=== PATIENT | female | born 1940 | race Caucasian/White ===

== ENCOUNTER 2016-05-15 16:18 | Outpatient (CLI) | payer MEDICARE, OTHER | END 2016-05-15 16:19 | disposition home or self-care (01) | DX: M19.012 Primary osteoarthritis, left shoulder (principal); Z85.118 Personal history of other malignant neoplasm of bronchus and lung; Z90.2 Acquired absence of lung [part of] ==

== ENCOUNTER 2016-10-08 08:39 | Emergency (ER) | payer MEDICARE, OTHER ==
[2016-10-08] MEDS ORDERED: SODIUM CHLORIDE 0.9% 1,000 ML IV ONE (09:02)
[2016-10-08] MEDS ORDERED: DEXAMETHASONE 10 MG/ML VIAL IVP STA (09:02)
[2016-10-08] MEDS ORDERED: IPRATROPIUM/ALBUTEROL 3 ML NEB INH STA (09:02)
--- NOTE | 2016-10-08 09:07 | ED Physician Documentation ---
PD HPI DYSPNEA - Stated complaint Stated Complaint: SOA - Chief complaint Chief Complaint: General - History obtained from History obtained from: Patient, Family - History of Present Illness Timing - onset: How many weeks ago (2) Timing - onset during: Rest Timing - duration: Weeks (2) Timing - details: Gradual onset, Still present, Waxing and waning Inciting event(s): URI Improved by: Inhaler/neb, Other (the z-elsa seemed to help) Worsened by: Exertion, Laying flat, Coughing Associated symptoms: Cough, Wheezing. No: Fever, Bilateral edema, Unilateral edema Similar symptoms before: Diagnosis (COPD) Recently seen: Clinic (Seen in the clinic 2 weeks ago.) - Additional information Additional information: 75 y/o female s/p lobectomy for lung cancer (5yrs ago)S has a history of COPD and about 2 weeks ago she began to have a cough and went in to see her doctor and was put on a z-elsa with thick yellow phlem that seemed to improve with the treatment. The cough has persisted and the coughing paroxysms are bad. She has a sore throat from the coughing and she vomited yesterday after using her inhaler and causing a coughing paroxysm. She is getting relief with the inhaler but she is short of breath and worse with exertion and laying flat. Review of Systems Constitutional: reports: Fatigue. denies: Fever, Chills Eyes: denies: Decreased vision Ears: denies: Ear pain Nose: reports: Congestion. denies: Rhinorrhea / runny nose Throat: reports: Sore throat Cardiac: denies: Chest pain / pressure, Palpitations, Pedal edema, Calf pain Respiratory: reports: Dyspnea, Cough, Wheezing GI: reports: Vomiting (yesterday with inhaler use and coughing paroxysm). denies: Abdominal Pain, Nausea : denies: Dysuria, Frequency Skin: denies: Rash Musculoskeletal: denies: Neck pain, Back pain, Extremity pain Neurologic: denies: Generalized weakness, Focal weakness, Numbness PD PAST MEDICAL HISTORY - Past Medical History Cardiovascular: Atrial fibrillation, Arrhythmia Respiratory: Other Neuro: None Endocrine/Autoimmune: None GI: Ulcers : None HEENT: Chronic sinusitis Psych: Claustrophobia Musculoskeletal: Osteopenia Derm: Psoriasis, Rosacea - Past Surgical History Past Surgical History: Yes General: Colonoscopy, EGD Ortho: Carpal Tunnel surgery, Other /[employer]: Hysterectomy HEENT: Tonsil/Adenoidectomy - Present Medications Home Medications: Ambulatory Orders Medication Instructions Recorded Confirmed Aspirin [Aspir 81] 81 mg PO DAILY 06/22/13 10/08/16 Metoprolol Succinate 25 mg PO BID 06/22/13 10/08/16 Acetaminophen [Tylenol Extra 1,000 mg PO Q6HR PRN 10/11/15 10/08/16 Strength] Metronidazole [Metrocream] 45 gm TP DAILY 10/11/15 10/08/16 Albuterol Sulfate [Proair Hfa] 8.5 gm IH PRN PRN 10/12/15 10/08/16 Azithromycin [Zithromax] 250 mg PO DAILY #6 tablet 10/08/16 Benzonatate [Tessalon] 100 - 200 mg PO TID PRN #20 capsule 10/08/16 predniSONE [Deltasone] 10 mg PO DAILY #26 tablet 10/08/16 - Allergies Allergies/Adverse Reactions: Allergies Allergy/AdvReac Type Severity Reaction Status Date / Time amoxicillin trihydrate * AdvReac Intermediate Emesis Verified 10/08/16 08:48 [From Augmentin] potassium clavulanate * AdvReac Intermediate Emesis Verified 10/08/16 08:48 [From Augmentin] ibuprofen [From Motrin] AdvReac Emesis Verified 10/08/16 08:48 - Social History Does the pt smoke?: No Smoking Status: Never smoker Does the pt drink ETOH?: Yes Does the pt have substance abuse?: No - Immunizations Immunizations are current?: Yes - POLST Patient has POLST: Yes POLST Status: Full Code PD ED PE NORMAL - Vitals Vital signs reviewed: Yes (marked diastolic hypertension, tachypnea) - General General: Alert and oriented X 3, Well developed/nourished, Other (The patient has persed lip tachypnea at rest and is pleasant and does not appear anxious. ) - HEENT HEENT: Atraumatic, PERRL, EOMI, Ears normal, Moist mucous membranes, Pharynx benign, Dentition benign - Neck Neck: Supple, no meningeal sign, No bony TTP - Cardiac Cardiac: RRR, No murmur - Respiratory Respiratory: Other (tachypneic at rest with diminished breath sounds and high pitched focal wheeze in the left mid lung field. There is a well healed lobectomy scar on the left lower chest posteriorly ) - Abdomen Abdomen: Soft, Non tender - Back Back: No CVA TTP, No spinal TTP - Derm Derm: Normal color, Warm and dry, No rash - Extremities Extremities: No deformity, No edema - Neuro Neuro: Alert and oriented X 3, No motor deficit, No sensory deficit, Normal speech - Psych Psych: Normal mood, Normal affect Results - Vitals Vitals: Vital Signs - 24 hr 10/08/16 10/08/16 10/08/16 08:44 09:30 09:34 Temperature 36.3 C L Heart Rate 96 68 78 Respiratory 22 24 18 Rate Blood Pressure 155/130 H 145/63 H O2 Saturation 96 94 10/08/16 10/08/16 10:19 11:00 Temperature Heart Rate 59 L 64 Respiratory 18 20 Rate Blood Pressure 140/55 H O2 Saturation 96 Oxygen O2 Source Room air - EKG (time done) 0915 Rate: Rate (enter#) (71) Rhythm: NSR, Other ( unifocal pvc's) Ischemia: Other (flat T's laterally ) Compare to prior EKG: Changed from prior EKG (SPT 314 rate has decreased and PVC's have developed. ) Computer interpretation: Disagree with computer (The R wave progession is normal ) - Labs Labs: Microbiology 10/08/16 09:30 Respiratory Culture - Preliminary Sputum Laboratory Tests 10/08/16 10/08/16 10/08/16 09:05 09:05 09:05 WBC 6.7 RBC 4.63 Hgb 13.9 Hct 41.5 MCV 89.6 MCH 30.0 MCHC 33.5 RDW 14.1 Plt Count 252 MPV 8.7 Neut # 4.1 Lymph # 1.8 [place] # 0.5 Eos # 0.1 Baso # 0.2 H Absolute Nucleated RBC 0.00 Nucleated RBCs 0.0 Sodium 139 Potassium 4.1 Chloride 103 Carbon Dioxide 28 Anion Gap 8.0 BUN 21 H Creatinine 0.7 Estimated GFR (MDRD) 81 L Glucose 114 H Calcium 9.6 Total Bilirubin 1.3 H AST 19 ALT 19 Alkaline Phosphatase 40 L Troponin I < 0.04 B-Natriuretic Peptide Total Protein 7.0 Albumin 3.9 Globulin 3.1 Albumin/Globulin Ratio 1.3 Lipase 31 Urine Color Urine Clarity Urine pH Ur Specific [place] Urine Protein Urine Glucose (UA) Urine Ketones Urine Occult Blood Urine Nitrite Urine Bilirubin Urine Urobilinogen Ur Leukocyte Esterase Ur Microscopic Review Urine Culture Comments 10/08/16 10/08/16 09:05 09:21 WBC RBC Hgb Hct MCV MCH MCHC RDW Plt Count MPV Neut # Lymph # [place] # Eos # Baso # Absolute Nucleated RBC Nucleated RBCs Sodium Potassium Chloride Carbon Dioxide Anion Gap BUN Creatinine Estimated GFR (MDRD) Glucose Calcium Total Bilirubin AST ALT Alkaline Phosphatase Troponin I B-Natriuretic Peptide 354 H Total Protein Albumin Globulin Albumin/Globulin Ratio Lipase Urine Color YELLOW Urine Clarity CLEAR Urine pH 6.0 Ur Specific [place] 1.010 Urine Protein NEGATIVE Urine Glucose (UA) NEGATIVE Urine Ketones NEGATIVE Urine Occult Blood NEGATIVE Urine Nitrite NEGATIVE Urine Bilirubin NEGATIVE Urine Urobilinogen 0.2 (NORMAL) Ur Leukocyte Esterase NEGATIVE Ur Microscopic Review NOT INDICATED Urine Culture Comments NOT INDICATED Procedures - IVC sono (time) 0900 Bedside IVC sono: IVC measures (cm) (1.02), IVC collapsed c insp (cm) (complete) , Dehydration PD MEDICAL DECISION MAKING - ED course Complexity details: reviewed old records, reviewed results, re-evaluated patient , considered differential, d/w patient, d/w family ED course: 75 y/o female s/p lobectomy for lung cancer with acute shortness of breath has diminished air movement and on interrogation of the IVC she is not in failure and in fact needs some fluid. She presents with rapid shallow breaths without hypoxia. She is initially treated in the ED with decadron, duoneb and saline. Her blood pressure is markedly elevated on initial presentation to the ED. She improves dramatically with treatment and CXR is without obvious infiltrate. She does produce a colored sputum sample and this is sent for culture. She is placed back on another course of zithromax as she felt this helped a lot and she is given a course of prednisone and she is reluctant to take it. I have discussed the use of the prednisone with her and I have asked her not to start this for 2 days and to start it the 3rd day if she has persistent dyspnea. Departure - Departure Disposition: 01 Home, Self Care Clinical Impression: COPD exacerbation, Bronchitis Condition: Stable Instructions: ED COPD Flare, ED Bronchitis Asthmatic Follow-Up: Melinda Lim MD [Primary Care Provider] - Prescriptions: predniSONE [Deltasone] 10 mg PO DAILY #26 tablet Benzonatate [Tessalon] 100 - 200 mg PO TID PRN #20 capsule PRN Reason: Cough Azithromycin [Zithromax] 250 mg PO DAILY #6 tablet
[2016-10-08] MEDS ORDERED: DEXAMETHASONE 10 MG/ML VIAL ONE (09:17)
[2016-10-08 09:22] LABS: BASOPHILS # (AUTO) 0.2 10^3/uL (0.0-0.1); BASOPHILS % (AUTO) 2.7 %; EOSINOPHILS # (AUTO) 0.1 10^3/uL (0.0-0.7); EOSINOPHILS % (AUTO) 1.5 %; HCT - HEMATOCRIT 41.5 % (37.0-47.0); HGB - HEMOGLOBIN 13.9 g/dL (12.0-16.0); LYMPHOCYTES # (AUTO) 1.8 10^3/uL (1.5-3.5); LYMPHOCYTES % (AUTO) 26.9 %; MEAN CORPUSCULAR HGB CONC 33.5 g/dL (32.0-36.0); MEAN CORPUSCULAR VOLUME 89.6 fL (81.0-99.0); MEAN PLATELET VOLUME 8.7 fL (7.9-10.8); MONOCYTES # (AUTO) 0.5 10^3/uL (0.0-1.0); MONOCYTES % (AUTO) 7.3 %; NEUTROPHILS # (AUTO) 4.1 10^3/uL (1.5-6.6); NEUTROPHILS % (AUTO) 61.6 %; RED BLOOD COUNT 4.63 10^6/uL (4.20-5.40); RED CELL DISTRIBUTION WIDTH 14.1 % (12.0-15.0); UNCORRECTED WHITE BLOOD COUNT 6.7 x10^3/uL; WHITE BLOOD COUNT 6.7 x10^3/uL (4.8-10.8)
[2016-10-08] MEDS ORDERED: IPRATROPIUM/ALBUTEROL 3 ML NEB INH ONE (09:22)
[2016-10-08 09:32] LABS: ALBUMIN/GLOBULIN RATIO 1.3 (1.0-2.2); BILIRUBIN,TOTAL 1.3 mg/dL (0.2-1.0); CALCIUM 9.6 mg/dL (8.5-10.3); CREATININE 0.7 mg/dL (0.4-1.0); POTASSIUM 4.1 mmol/L (3.5-5.0)
[2016-10-08 09:33] LABS: BILIRUBIN,URINE NEGATIVE (NEGATIVE)
[2016-10-08 09:35] LABS: UA CHARGE (STRIP ONLY) YES; UR CULTURE IF IND NOT INDICATED
[2016-10-08] MEDS ORDERED: ALBUTEROL NEB 2.5 MG/3 ML INH STA (10:57)
--- NOTE | 2016-10-08 10:57 | XRAY Preliminary Report ---
Exam: XR Chest 2 View PA/LAT IMPRESSION: 1. Interval moderate decrease in the elevated left hemidiaphragm and otherwise minimal interval [place] e of the left pneumonectomy. 2. Negative for acute cardiopulmonary process or new right pulmonary infiltrate. [facility] SITE ID: [id number]
--- NOTE | 2016-10-08 11:00 | XRAY Report ---
EXAM: CHEST RADIOGRAPHY EXAM DATE: 10/08/2016 10:38 AM. CLINICAL HISTORY: Cough, soa for 1 month, status post left pneumonectomy. COMPARISON: 05/15/2016. TECHNIQUE: 2 views. FINDINGS: Lungs/Pleura: The postoperative changes of left pneumonectomy again visualized, minimal interval bruner ges. No new focal opacities in the right lung evident. No right pleural effusion. No pneumothorax. Mediastinum: Heart and mediastinal contours are stable in appearance. Other: The prior elevated left hemidiaphragm is moderately reduced. IMPRESSION: 1. Interval moderate decrease in the elevated left hemidiaphragm and otherwise minimal interval [place] e of the left pneumonectomy. 2. Negative for acute cardiopulmonary process or new right pulmonary infiltrate. [facility] Referring Provider Line: [phone] SITE ID: [id number]
[2016-10-08] MEDS ORDERED: ALBUTEROL NEB 2.5 MG/3 ML INH ONE (11:06)
[2016-10-08 11:39] VITALS: BP 133/61
== END 2016-10-08 11:43 | disposition home or self-care (01) ==
LOC: ED 08:39
DX: J44.1 Chronic obstructive pulmonary disease with (acute) exacerbation (principal); R03.0 Elevated blood-pressure reading, without diagnosis of hypertension; E86.0 Dehydration; I49.3 Ventricular premature depolarization; Z85.118 Personal history of other malignant neoplasm of bronchus and lung; Z90.2 Acquired absence of lung [part of]; Z79.82 Long term (current) use of aspirin
CPT/HCPCS: 36415; 71020; 80053; 81003; 83690; 83880; 84484; 85025; 87070; 87205; 93005; 94640; 94664; 96361; 96374; 99284; J7613; J7620; 81001; 87086

== ENCOUNTER 2016-10-10 09:23 | Outpatient (CLI) | payer MEDICARE, OTHER ==
[2016-10-10] MEDS ORDERED: ALBUTEROL NEB 2.5 MG/3 ML INH ONE (09:30)
== END 2016-10-10 09:24 | disposition home or self-care (01) ==
LOC: RT 09:23
PROVIDERS: ATTEND Internal Medicine
DX: R05 Cough (principal); R06.00 Dyspnea, unspecified
CPT/HCPCS: 94060; J7613

== ENCOUNTER 2017-03-04 09:00 | Outpatient (CLI) | payer MEDICARE, OTHER ==
[2017-03-04 09:35] LABS: CALCIUM 9.7 mg/dL (8.5-10.3); CREATININE 1.2 mg/dL (0.4-1.0); POTASSIUM 4.7 mmol/L (3.5-5.0)
== END 2017-03-04 09:01 | disposition home or self-care (01) ==
LOC: LAB 09:00
PROVIDERS: ATTEND Internal Medicine Pulmonary Disease
DX: R06.00 Dyspnea, unspecified (principal)
CPT/HCPCS: 36415; 80048

== ENCOUNTER 2017-12-16 08:41 | Outpatient (CLI) | payer MEDICARE, OTHER ==
[2017-12-16 09:20] LABS: BASOPHILS # (AUTO) 0.1 10^3/uL (0.0-0.1); BASOPHILS % (AUTO) 1.1 %; EOSINOPHILS # (AUTO) 0.3 10^3/uL (0.0-0.7); EOSINOPHILS % (AUTO) 4.2 %; HGB - HEMOGLOBIN 14.7 g/dL (12.0-16.0); LYMPHOCYTES # (AUTO) 2.1 10^3/uL (1.5-3.5); LYMPHOCYTES % (AUTO) 32.4 %; MEAN CORPUSCULAR HEMOGLOBIN 30.2 pg (27.0-31.0); MEAN CORPUSCULAR HGB CONC 33.7 g/dL (32.0-36.0); MEAN CORPUSCULAR VOLUME 89.5 fL (81.0-99.0); MEAN PLATELET VOLUME 9.2 fL (7.9-10.8); MONOCYTES # (AUTO) 0.5 10^3/uL (0.0-1.0); MONOCYTES % (AUTO) 7.3 %; NEUTROPHILS # (AUTO) 3.5 10^3/uL (1.5-6.6); PLT - PLATELET COUNT 185 10^3/uL (130-450); RED BLOOD COUNT 4.87 10^6/uL (4.20-5.40); RED CELL DISTRIBUTION WIDTH 13.4 % (12.0-15.0); WHITE BLOOD COUNT 6.4 x10^3/uL (4.8-10.8)
[2017-12-16 09:23] LABS: BILIRUBIN,URINE NEGATIVE (NEGATIVE); GLUCOSE, URINE (UA) NEGATIVE (NEGATIVE); KETONES,URINE (UA) NEGATIVE (NEGATIVE); LEUKOCYTE ESTERASE, URINE NEGATIVE (NEGATIVE); NITRITE,URINE NEGATIVE (NEGATIVE); OCCULT BLOOD,URINE NEGATIVE (NEGATIVE); PROTEIN,URINE NEGATIVE (NEGATIVE); UROBILINOGEN,URINE 0.2 (NORMAL) E.U./dL (NORMAL)
[2017-12-16 09:34] LABS: HB2 TOTAL 15.7 g/dL; HEMOGLOBIN A1C 0.62 g/dL; HEMOGLOBIN A1C % 5.8 % (4.6-6.2)
[2017-12-16 09:35] LABS: ALBUMIN 3.9 g/dL (3.2-5.5); ALBUMIN/GLOBULIN RATIO 1.3 (1.0-2.2); ALKALINE PHOSPHATASE 39 IU/L (42-121); ALT ALANINE AMINOTRANSFERASE 13 IU/L (10-60); AST ASPARTATE AMINOTRANSFERASE 18 IU/L (10-42); BILIRUBIN,TOTAL 1.1 mg/dL (0.2-1.0); BUN - BLOOD UREA NITROGEN 22 mg/dL (6-20); CALCIUM 9.2 mg/dL (8.5-10.3); CARBON DIOXIDE - CO2 31 mmol/L (21-32); CHLORIDE 101 mmol/L (101-111); CHOL/HDL RATIO 3.7 (<4.4); CHOLESTEROL 244 mg/dL; CLARITY,URINE CLEAR (CLEAR); CREATININE 0.8 mg/dL (0.4-1.0); GFR - MDRD 69 (>89); GLUCOSE 117 mg/dL (70-100); HDL CHOLESTEROL 66 mg/dL; LDL CHOLESTEROL,CALCULATED 138 mg/dL; LDL/HDL RATIO 2.1 (<4.4); SODIUM 139 mmol/L (135-145); VLDL CHOLESTEROL 40 mg/dL
== END 2017-12-16 08:42 | disposition home or self-care (01) ==
LOC: LAB 08:41
PROVIDERS: ATTEND Internal Medicine
DX: I10 Essential (primary) hypertension (principal); Z79.899 Other long term (current) drug therapy; C34.90 Malignant neoplasm of unspecified part of unspecified bronchus or lung; J44.9 Chronic obstructive pulmonary disease, unspecified; K21.9 Gastro-esophageal reflux disease without esophagitis; R14.3 Flatulence; N39.3 Stress incontinence (female) (male); R73.01 Impaired fasting glucose; E78.5 Hyperlipidemia, unspecified; Z13.6 Encounter for screening for cardiovascular disorders
CPT/HCPCS: 36415; 80053; 80061; 81001; 81003; 83036; 83721; 84443; 85025; 87086

== ENCOUNTER 2018-01-03 14:22 | Outpatient (CLI) | payer MEDICARE, OTHER ==
[2018-01-03] MEDS ORDERED: IOPAMIDOL-300 100 ML VIAL ONE (14:29)
[2018-01-03] MEDS ORDERED: IOPAMIDOL-300 50 ML VIAL ONE (14:32)
[2018-01-03] MEDS ORDERED: IOPAMIDOL-300 100 ML VIAL IVP ONE (15:54)
[2018-01-03] MEDS ORDERED: IOPAMIDOL-300 50 ML VIAL PO ONE (15:54)
--- NOTE | 2018-01-03 17:51 | CT Report ---
Reason: LLQ PAIN Procedure Date: 01/03/2018 Accession Number: [id number] / [id number] Procedure: CT - Abdomen/Pelvis W/ CPT Code: FULL RESULT: EXAM: CT ABDOMEN AND PELVIS EXAM DATE: 01/03/2018 03:52 PM. CLINICAL HISTORY: LLQ PAIN. COMPARISONS: None. TECHNIQUE: Routine helical CT imaging was performed through the abdomen and pelvis. IV contrast: 100 cc Isovue-300. Enteric contrast: Yes. Reconstructions: Coronal and sagittal. In accordance with CT protocol optimization, one or more of the following dose reduction techniques were utilized for this exam: automated exposure control, adjustment of mA and/or KV based on patient size, or use of iterative reconstructive technique. FINDINGS: ABDOMEN: Lung Bases: Incompletely included lower lungs demonstrate volume loss in the left hemithorax and a small pleural effusion. There is mediastinal shift to the left. Heart size is within normal limits. No basilar effusions. Liver: Unremarkable aside from a couple cysts measuring 2.4 cm and 2.3 cm. Spleen: Unremarkable. Pancreas: Unremarkable. Gallbladder/Bile Ducts: Gallbladder is unremarkable. Biliary tree is normal caliber. Adrenal Glands: Unremarkable. Kidneys: No mass, calculi, or hydronephrosis. Peritoneum/Mesentery/Bowel: No free fluid, free air, or collection. No intestinal obstruction or inflammation. Extensive colonic diverticulosis is present. The appendix is within normal limits. Lymph nodes: No mesenteric, periportal, or retroperitoneal lymphadenopathy. Vasculature: Abdominal aorta is nonaneurysmal. Severe calcified out this chronic disease of the patent common iliac arteries. Portal vein is patent. Hepatic veins are patent. PELVIS: The bladder is unremarkable for the degree of distention. Uterus is absent. No pelvic lymphadenopathy. Bones: No suspicious osseous lesions. IMPRESSION: No acute abnormalities. Extensive sigmoid diverticulosis without evidence for diverticulitis. [facility]
== END 2018-01-03 14:23 | disposition home or self-care (01) ==
LOC: DI 14:22
PROVIDERS: ATTEND Internal Medicine
DX: R10.32 Left lower quadrant pain (principal); K57.30 Diverticulosis of large intestine without perforation or abscess without bleeding
CPT/HCPCS: 74177; Q9967

== ENCOUNTER 2020-03-24 10:58 | Outpatient (CLI) | payer MEDICARE, OTHER | END 2020-03-24 10:59 | disposition critical access hospital (66) | LOC: EMS 10:58 | PROVIDERS: ATTEND Surgery | DX: R47.81 Slurred speech (principal); R51.9 Headache, unspecified; R26.81 Unsteadiness on feet ==

== ENCOUNTER 2020-03-24 11:03 | Emergency (ER) | payer MEDICARE, OTHER ==
--- NOTE | 2020-03-24 11:40 | XRAY Report ---
PROCEDURE: Chest 1 View X-Ray INDICATIONS: speech difficulty, weakness TECHNIQUE: One view of the chest was acquired. COMPARISON: 10/08/2016 FINDINGS: Surgical changes and devices: Surgical clips are noted in left hilar region. Lungs and pleura: Complete opacification of left hemithorax is again seen consistent with prior left pneumonectomy. Right lung is clear. No pleural effusion or pneumothorax. Mild pulmonary vascular jose estion is seen. Mediastinum: Mediastinal shift to the left is again seen unchanged from prior study.. Heart size is normal. Bones and chest wall: No suspicious bony lesions. Overlying soft tissues appear unremarkable. IMPRESSION: Suggestion of prior left pneumonectomy. Mild congestion. No right-sided infiltrate, pleural effusion or pneumothorax. Reviewed by: Morales Buckley MD on 03/24/2020 10:38 AM [facility] Approved by: Morales Buckley MD on 03/24/2020 10:38 AM [facility] Station ID: [id number]
[2020-03-24 11:42] LABS: BASOPHILS # (AUTO) 0.1 10^3/uL (0.0-0.1); BASOPHILS % (AUTO) 1.1 %; EOSINOPHILS # (AUTO) 0.3 10^3/uL (0.0-0.7); EOSINOPHILS % (AUTO) 3.8 %; HGB - HEMOGLOBIN 14.1 g/dL (12.0-16.0); LYMPHOCYTES # (AUTO) 2.4 10^3/uL (1.5-3.5); LYMPHOCYTES % (AUTO) 32.5 %; MEAN CORPUSCULAR HEMOGLOBIN 28.9 pg (27.0-31.0); MEAN CORPUSCULAR HGB CONC 31.6 g/dL (32.0-36.0); MEAN CORPUSCULAR VOLUME 91.4 fL (81.0-99.0); MEAN PLATELET VOLUME 10.9 fL (7.9-10.8); MONOCYTES # (AUTO) 0.5 10^3/uL (0.0-1.0); MONOCYTES % (AUTO) 7.4 %; NEUTROPHILS % (AUTO) 54.9 %; PLT - PLATELET COUNT 232 10^3/uL (130-450); RED BLOOD COUNT 4.88 10^6/uL (4.20-5.40); WHITE BLOOD COUNT 7.3 x10^3/uL (4.8-10.8)
[2020-03-24 11:54] LABS: ALBUMIN 4.1 g/dL (3.2-5.5); ALBUMIN/GLOBULIN RATIO 1.3 (1.0-2.2); BILIRUBIN,TOTAL 1.2 mg/dL (0.2-1.0); CALCIUM 9.6 mg/dL (8.5-10.3); CREATININE 0.7 mg/dL (0.4-1.0); TOTAL PROTEIN 7.3 g/dL (6.7-8.2)
[2020-03-24] MEDS ORDERED: IOVERSOL 320 100 ML VIAL IVP ONE ×2 (12:55→14:28)
--- NOTE | 2020-03-24 13:48 | CT Report ---
PROCEDURE: ANGIO HEAD W/WO INDICATIONS: Stroke symptoms; facial droop and slurred speech CONTRAST: IV CONTRAST: Optiray 320 ml: 80 PO CONTRAST: *NO PO CONTRAST TECHNIQUE: Precontrast 4.5 mm thick angled axial sections acquired from the foramen magnum to the vertex. Afte r the administration of intravenous contrast, 1 mm thick sections acquired through the [place] is. Postcontrast 4.5 mm thick sections then re-acquired from the foramen magnum to the vertex. 3-di mensional lcxckjt-xehoaglyp-mfopcwrgyr (MIP) and/or volume rendering reformats were acquired of the c entral intracranial vasculature. For radiation dose reduction, the following was used: automated ex posure control, adjustment of mA and/or kV according to patient size. COMPARISON: Done. FINDINGS: Image quality: Excellent. Anterior circulation: There is complete occlusion of the left distal carotid terminus extending into the left M1 and A1 segments. The left ophthalmic artery origin appears patent. The A2 and M2 segments are perfused, presumably via collaterals across the [place] and lenticulostriate vessels. R ight-sided cerebral vasculature appears patent. Posterior circulation: Visualized portions of the vertebral arteries demonstrate normal caliber, and join to form a normal appearing basilar artery. Flow within the posterior cerebral arteries is norm al and symmetric. No aneurysms are seen. CSF spaces: Ventricles are normal in size and shape. Basal cisterns are patent. No extra-axial flu id collections. Brain: No acute intracranial hemorrhage. Skull and face: Calvarium and facial bones appear intact, without suspicious lesions. Sinuses: Visualized sinuses and mastoids are clear. IMPRESSION: No evidence of acute intracranial hemorrhage. 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 Findings were discussed with Dr. Gracie Ivy. Reviewed by: Alvin Beckett MD on 03/24/2020 1:47 PM PST Approved by: Alvin Beckett MD on 03/24/2020 1:47 PM PST Station ID: [id number]
--- NOTE | 2020-03-24 13:53 | CT Report ---
PROCEDURE: ANGIO NECK W INDICATIONS: stroke CONTRAST: IV CONTRAST: Optiray 320 ml: 80 PO CONTRAST: *NO PO CONTRAST TECHNIQUE: After the administration of intravenous contrast, 1.5 mm axial sections acquired from the aortic arch to the [place]. Coronal 3-D maximum intensity projection (MIP) and/or volume rendering ref ormats were then performed. For radiation dose reduction, the following was used: automated exposur e control, adjustment of mA and/or kV according to patient size. COMPARISON: None. FINDINGS: Image quality: Excellent. Carotid system: The left common carotid artery and brachiocephalic artery share a common origin from the aortic arch. There are atherosclerotic calcifications in the aortic arch extending into the origi ns of the arch branch vessels without hemodynamic significant stenosis. Bilateral common carotid shakila robert are widely patent. There is atherosclerotic calcification and soft plaque in both carotid bifurc ations without hematemesis significant stenosis, extending into the origins of the internal carotid a rteries. No flow-limiting stenosis of the cervical internal carotid arteries. Posterior circulation: Both vertebral arteries are widely patent and appear codominant.. Soft tissues: There are asymmetrically enlarged lymph nodes in the left neck base measuring up to 1.4 cm in short axis diameter (series 2 image 81 for example). Bones: No suspicious bony lesions. Visualized cervical spine appears normally aligned. IMPRESSION: Mild atherosclerotic disease of the carotid bifurcations without a mechanically significant stenosis. Asymmetrically enlarged lymph nodes in the left neck base. Findings are worrisome for metastatic dise ase given the presumed history of prior pneumonectomy. Estimates of stenoses included in the report of the imaging study was calculated using the NASCET met hod Reviewed by: Alvin Beckett MD on 03/24/2020 1:52 PM PST Approved by: Alvin Beckett MD on 03/24/2020 1:52 PM PST Station ID: [id number]
[2020-03-24] MEDS ORDERED: ALBUTEROL NEB 2.5 MG/3 ML INH STA (14:13)
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
[2020-03-24] MEDS ORDERED: ASPIRIN CHEW 81 MG TABLET PO STA (15:31)
[2020-03-24 15:48] LABS: C. PNEUMONIAE- RESP PCR PANEL NOT DETECTED
[2020-03-24 18:36] VITALS: BP 140/76
== END 2020-03-24 18:35 | disposition short-term general hospital (02) ==
LOC: EDUNIT# → ED 11:03
DX: G45.9 Transient cerebral ischemic attack, unspecified (principal); Z90.2 Acquired absence of lung [part of]; I48.91 Unspecified atrial fibrillation; Z87.891 Personal history of nicotine dependence; Z85.118 Personal history of other malignant neoplasm of bronchus and lung; Z20.828 Contact with and (suspected) exposure to other viral communicable diseases
CPT/HCPCS: 36415; 70496; 70498; 71045; 80053; 83690; 85025; 87631; 93005; 94640; 99285; A9270; Q9967; 0202U

== ENCOUNTER 2020-03-24 18:21 | Outpatient (CLI) | payer MEDICARE, OTHER | END 2020-03-24 18:22 | disposition short-term general hospital (02) | LOC: EMS 18:21 | PROVIDERS: ATTEND Surgery | DX: I65.29 Occlusion and stenosis of unspecified carotid artery (principal); R47.81 Slurred speech; R51.9 Headache, unspecified; R26.81 Unsteadiness on feet | CPT/HCPCS: A0425; A0428; A0429 ==

== ENCOUNTER 2020-12-09 14:55 | Outpatient (CLI) | payer MEDICARE, OTHER ==
--- NOTE | 2020-12-09 16:12 | XRAY Report ---
PROCEDURE: Chest 2 View X-Ray INDICATIONS: COUGH TECHNIQUE: 2 view(s) of the chest. COMPARISON: 03/24/2020 FINDINGS: Surgical changes and devices: Surgical change of left pneumonectomy with clips projecting in the mid left hemithorax.. Lungs and pleura: There is appropriate opacification and volume loss in the left hemithorax including elevation of the diaphragm. The right lung is normally aerated and appears clear. Mediastinum: Leftward shift of the mediastinum. Calcified aortic caliber and contour appears normal. Heart size is obscured. Bones and chest wall: Mild S-shaped thoracolumbar scoliosis with mild endplate degenerative changes. IMPRESSION: 1. No acute process. 2. Stable findings of prior left pneumonectomy Reviewed by: Marilee Flor MD on 12/09/2020 4:11 PM PDT Approved by: Marilee Flor MD on 12/09/2020 4:11 PM PDT Station ID: [id number]
== END 2020-12-09 14:56 | disposition home or self-care (01) ==
LOC: DI 14:55
PROVIDERS: ATTEND Internal Medicine
DX: J44.9 Chronic obstructive pulmonary disease, unspecified (principal); R05 Cough; R06.09 Other forms of dyspnea; Z90.2 Acquired absence of lung [part of]

== ENCOUNTER 2021-07-06 12:13 | Outpatient (CLI) | payer MEDICARE, OTHER ==
[2021-07-06 12:30] LABS: BASOPHILS # (AUTO) 0.1 10^3/uL (0.0-0.1); BASOPHILS % (AUTO) 0.8 %; EOSINOPHILS # (AUTO) 0.2 10^3/uL (0.0-0.7); EOSINOPHILS % (AUTO) 2.7 %; LYMPHOCYTES # (AUTO) 2.7 10^3/uL (1.5-3.5); LYMPHOCYTES % (AUTO) 34.4 %; MEAN CORPUSCULAR HEMOGLOBIN 28.5 pg (27.0-31.0); MEAN CORPUSCULAR HGB CONC 31.8 g/dL (32.0-36.0); MEAN CORPUSCULAR VOLUME 89.6 fL (81.0-99.0); MEAN PLATELET VOLUME 11.1 fL (7.9-10.8); MONOCYTES # (AUTO) 0.6 10^3/uL (0.0-1.0); MONOCYTES % (AUTO) 7.5 %; NEUTROPHILS # (AUTO) 4.2 10^3/uL (1.5-6.6); NEUTROPHILS % (AUTO) 54.3 %; PLT - PLATELET COUNT 213 10^3/uL (130-450); RED BLOOD COUNT 4.91 10^6/uL (4.20-5.40); RED CELL DISTRIBUTION WIDTH 13.3 % (12.0-15.0); WHITE BLOOD COUNT 7.7 x10^3/uL (4.8-10.8)
[2021-07-06 12:51] LABS: ALBUMIN 4.2 g/dL (3.2-5.5); ALBUMIN/GLOBULIN RATIO 1.4 (1.0-2.2); BILIRUBIN,TOTAL 1.2 mg/dL (0.2-1.0); CALCIUM 9.8 mg/dL (8.5-10.3); CREATININE 0.8 mg/dL (0.4-1.0); POTASSIUM 4.8 mmol/L (3.5-5.0); TOTAL PROTEIN 7.3 g/dL (6.7-8.2)
--- NOTE | 2021-07-06 12:52 | XRAY Report ---
PROCEDURE: Chest 2 View X-Ray INDICATIONS: DYSPNEA TECHNIQUE: 2 view(s) of the chest. COMPARISON: A 2720. FINDINGS: Surgical changes and devices: Surgical clips are noted in left hemithorax.. Lungs and pleura: There is prior left lung resection with complete opacification of left hemithorax a nd elevation of left hemidiaphragm. Mediastinal shift to the left is seen. Right lung is clear. No fo renato infiltrate, pleural effusion or pneumothorax. Mediastinum: Mediastinal contours are normal. Heart size is normal. Bones and chest wall: No suspicious bony abnormalities. Soft tissues appear unremarkable. IMPRESSION: No acute cardiopulmonary pathology. Prior left pneumonectomy. Reviewed by: Morales Buckley MD on 07/06/2021 12:50 PM PDT Approved by: Morales Buckley MD on 07/06/2021 12:50 PM PDT Station ID: [id number]
== END 2021-07-06 12:14 | disposition home or self-care (01) ==
LOC: DI 12:13
PROVIDERS: ATTEND Internal Medicine
DX: J44.9 Chronic obstructive pulmonary disease, unspecified (principal); I50.9 Heart failure, unspecified; Z79.899 Other long term (current) drug therapy
CPT/HCPCS: 36415; 80053; 83880; 85025

== ENCOUNTER 2021-08-16 08:00 | Outpatient (CLI) | payer MEDICARE, OTHER ==
[2021-08-16 16:23] LABS: BILIRUBIN,URINE NEGATIVE (NEGATIVE); GLUCOSE, URINE (UA) NEGATIVE (NEGATIVE); KETONES,URINE (UA) NEGATIVE (NEGATIVE); LEUKOCYTE ESTERASE, URINE LARGE (NEGATIVE); NITRITE,URINE NEGATIVE (NEGATIVE); OCCULT BLOOD,URINE LARGE (NEGATIVE); PROTEIN,URINE TRACE mg/dL (NEGATIVE); UROBILINOGEN,URINE 0.2 (NORMAL) E.U./dL (NORMAL)
[2021-08-16 16:26] LABS: CLARITY,URINE HAZY (CLEAR)
[2021-08-16 16:41] LABS: BACTERIA,URINE Moderate /HPF (None Seen); SQUAMOUS EPITHELIAL CELL,UR RARE Squamous (<= Few); WBC,URINE >25 /HPF (0-5)
== END 2021-08-19 18:09 | disposition home or self-care (01) ==
LOC: LAB.R 08:00
PROVIDERS: ATTEND Internal Medicine
DX: N39.0 Urinary tract infection, site not specified (principal)
CPT/HCPCS: 81001; 87086; 87181

== ENCOUNTER 2021-12-26 08:39 | Outpatient (CLI) | payer MEDICARE, OTHER ==
[2021-12-26 08:58] LABS: BASOPHILS % (AUTO) 0.5 %; EOSINOPHILS # (AUTO) 0.2 10^3/uL (0.0-0.7); EOSINOPHILS % (AUTO) 3.1 %; HCT - HEMATOCRIT 43.5 % (37.0-47.0); HGB - HEMOGLOBIN 13.9 g/dL (12.0-16.0); LYMPHOCYTES # (AUTO) 2.5 10^3/uL (1.5-3.5); LYMPHOCYTES % (AUTO) 33.6 %; MEAN CORPUSCULAR HEMOGLOBIN 28.5 pg (27.0-31.0); MEAN CORPUSCULAR VOLUME 89.3 fL (81.0-99.0); MEAN PLATELET VOLUME 10.9 fL (7.9-10.8); MONOCYTES # (AUTO) 0.5 10^3/uL (0.0-1.0); MONOCYTES % (AUTO) 6.5 %; NEUTROPHILS # (AUTO) 4.2 10^3/uL (1.5-6.6); PLT - PLATELET COUNT 198 10^3/uL (130-450); RED BLOOD COUNT 4.87 10^6/uL (4.20-5.40); RED CELL DISTRIBUTION WIDTH 13.6 % (12.0-15.0); WHITE BLOOD COUNT 7.5 x10^3/uL (4.8-10.8)
[2021-12-26 09:17] LABS: ALBUMIN 3.9 g/dL (3.2-5.5); ALBUMIN/GLOBULIN RATIO 1.4 (1.0-2.2); ALKALINE PHOSPHATASE 46 IU/L (42-121); ALT ALANINE AMINOTRANSFERASE 18 IU/L (10-60); AST ASPARTATE AMINOTRANSFERASE 18 IU/L (10-42); BILIRUBIN,TOTAL 1.2 mg/dL (0.2-1.0); BUN - BLOOD UREA NITROGEN 18 mg/dL (6-20); CALCIUM 9.5 mg/dL (8.5-10.3); CARBON DIOXIDE - CO2 32 mmol/L (21-32); CHLORIDE 102 mmol/L (101-111); CHOL/HDL RATIO 2.6 (<4.4); CHOLESTEROL 146 mg/dL; CREATININE 0.8 mg/dL (0.4-1.0); GFR - MDRD 69 (>89); GLUCOSE 105 mg/dL (70-100); HDL CHOLESTEROL 56 mg/dL; LDL CHOLESTEROL,CALCULATED 63 mg/dL; LDL/HDL RATIO 1.1 (<4.4); POTASSIUM 4.5 mmol/L (3.5-5.0); SODIUM 142 mmol/L (135-145); TOTAL PROTEIN 6.7 g/dL (6.7-8.2); TRIGLYCERIDES 135 mg/dL; VLDL CHOLESTEROL 27 mg/dL
[2021-12-26 13:09] LABS: ESTIMATED AVERAGE GLUCOSE 123 mg/dL (70-100); HEMOGLOBIN A1c% 5.9 % (4.27-6.07)
== END 2021-12-26 08:40 | disposition home or self-care (01) ==
LOC: LAB 08:39
PROVIDERS: ATTEND Internal Medicine
DX: Z00.00 Encounter for general adult medical examination without abnormal findings (principal); J44.9 Chronic obstructive pulmonary disease, unspecified; I11.0 Hypertensive heart disease with heart failure; I50.30 Unspecified diastolic (congestive) heart failure; K21.9 Gastro-esophageal reflux disease without esophagitis; R73.9 Hyperglycemia, unspecified; E78.5 Hyperlipidemia, unspecified; C34.90 Malignant neoplasm of unspecified part of unspecified bronchus or lung; Z79.899 Other long term (current) drug therapy; G45.9 Transient cerebral ischemic attack, unspecified; N39.3 Stress incontinence (female) (male)
CPT/HCPCS: 36415; 80053; 80061; 83036; 83721; 84443; 85025

== ENCOUNTER 2022-06-08 11:49 | Emergency (ER) | payer MEDICARE, OTHER ==
--- NOTE | 2022-06-08 11:58 | ED Physician Documentation ---
PD HPI Fall - Stated complaint Stated Complaint: FALL HEAD INJ - History obtained from History obtained from: Patient - History of Present Illness Mechanism of injury: Tripped (The [place] and arm with her and. They both fell forward and struck their faces. No loss of consciousness. Patient takes Plavix. Facial abrasion but no headache.) Fall distance: Standing position Timing - onset: Today Injury(ies) location: Face Quality of pain: Aching Associated symptoms: No: LOC, AMS, Neck pain, Weakness, Paresthesias Contributing factors: Anticoagulated Similar symptoms before: Has not had sx before Review of Systems Eyes: denies: Loss of vision, Decreased vision Musculoskeletal: denies: Neck pain Neurologic: denies: Focal weakness, Numbness, Near syncope, Syncope, Altered mental status, Headache, LOC PD PAST MEDICAL HISTORY - Past Medical History Cardiovascular: Atrial fibrillation, Arrhythmia Respiratory: Other Endocrine/Autoimmune: None GI: Ulcers : None HEENT: Chronic sinusitis Psych: Claustrophobia Musculoskeletal: Osteopenia Derm: Psoriasis, Rosacea - Past Surgical History Past Surgical History: Yes General: Colonoscopy, EGD Ortho: Carpal Tunnel surgery, Other /LICENSED PROFESSIONAL COUNSELOR: Hysterectomy HEENT: Tonsil/Adenoidectomy - Present Medications Home Medications: Ambulatory Orders Medication Instructions Recorded Confirmed Metoprolol Succinate 25 mg PO BID 06/22/13 03/24/20 Acetaminophen [Tylenol Extra 1,000 mg PO Q6HR PRN 10/11/15 03/24/20 Strength] Metronidazole [Metrocream] 45 gm TP DAILY 10/11/15 03/24/20 Albuterol Sulfate [Proair Hfa] 8.5 gm IH PRN PRN 10/12/15 03/24/20 Atorvastatin [Lipitor] 20 mg DAILY 03/24/20 03/24/20 Clopidogrel [Plavix] 75 mg DAILY 03/24/20 03/24/20 Furosemide [Lasix] 10 mg DAILY 03/24/20 03/24/20 Loratadine [Claritin] 10 mg DAILY 03/24/20 03/24/20 Losartan Potassium 25 mg DAILY 03/24/20 03/24/20 Umeclidinium Brm/Vilanterol Tr 1 puffs DAILY 03/24/20 03/24/20 [Anoro Ellipta 62.5-25 Mcg INH] - Allergies Allergies/Adverse Reactions: Allergies Allergy/AdvReac Type Severity Reaction Status Date / Time isoniazid Allergy Hives Verified 06/08/22 12:03 amoxicillin trihydrate * AdvReac Intermediate Emesis Verified 06/08/22 12:03 [From Augmentin] potassium clavulanate * AdvReac Intermediate Emesis Verified 06/08/22 12:03 [From Augmentin] hydrocodone [From Vicodin] AdvReac Emesis Verified 06/08/22 12:03 ibuprofen [From Motrin] AdvReac Emesis Verified 06/08/22 12:03 - Social History Does the pt smoke?: No Smoking Status: Never smoker Does the pt drink ETOH?: Yes Does the pt have substance abuse?: No - Immunizations Immunizations are current?: Yes - POLST Patient has POLST: Yes POLST Status: Full Code PD ED PE NORMAL - Vitals Vital signs reviewed: Yes - General General: Alert and oriented X 3, No acute distress, Well developed/nourished - HEENT HEENT: PERRL, EOMI, Other (The left maxillary area with a abrasion which is partial-thickness and about 1-1/2 cm in diameter. No foreign body. The wound is clean. No obvious depression or deformity of the zygoma underneath.) - Neck Neck: Supple, no meningeal sign, No bony TTP - Respiratory Respiratory: No respiratory distress, Clear bilaterally, Other (no chestwall tenderness) - Abdomen Abdomen: Normal bowel sounds, Non tender - Derm Derm: Normal color, Warm and dry - Extremities Extremities: Other (Mild tenderness in the anterior both knees but has good full range of motion and no effusion. She had been ambulatory.) Results - Vitals Vitals: Vital Signs - 24 hr 06/08/22 12:00 Temperature 36.8 C Heart Rate 78 Respiratory 20 Rate Blood Pressure 154/104 H O2 Saturation 100 Oxygen O2 Source Room air - Rads (name of study) head and face ct Radiology: Prelim report reviewed, See rad report PD Medical Decision Making - ED course Complexity details: reviewed results, re-evaluated patient, considered differential, d/w patient ED course: The patient felt well prior to falling. No lightheaded nor presyncopal symptoms. [place] She has an abrasion on the left cheek. No general headache no neurologic symptoms. She does take Plavix so is at higher risk for intracranial bleed. I feel it appropriate to obtain imaging of the head and face and we will send her for CT scans. CT did not show any bleeding nor fractures revieweed by me and per radiology report. Departure - Departure Disposition: 01 Home, Self Care Clinical Impression: Antiplatelet or antithrombotic long-term use Fall from slip, trip, or stumble Qualifiers: Encounter type: initial encounter Qualified Code(s): W01.0XXA - Fall on same level from slipping, tripping and stumbling without subsequent striking against object, initial encounter Facial abrasion Qualifiers: Encounter type: initial encounter Qualified Code(s): S00.81XA - Abrasion of other part of head, initial encounter Condition: Stable Record reviewed to determine appropriate education?: Yes Instructions: ED Abrasion Follow-Up: Melinda Lim MD [Primary Care Provider] - Comments: Your CT scans of the head and face are normal without showing any signs of bleeding, fractures, acute abnormality. For the facial abrasion, cleanse the area once or twice daily with soap and water and apply antibiotic ointment lightly to the area. Tylenol if needed for pains every 4-6 hours. Recheck if signs of infection. Discharge Date/Time: 06/08/22 14:14
[2022-06-08 12:03] VITALS: BP 154/104
[2022-06-08] MEDS ORDERED: BACITRACIN ZINC OINT 1 PACKET TOP STA (12:16)
[2022-06-08] MEDS ORDERED: ACETAMINOPHEN 325 MG TABLET PO STA (12:16)
--- NOTE | 2022-06-08 13:02 | CT Report ---
PROCEDURE: CT brain without contrast INDICATIONS: fall struck face; on Plavix TECHNIQUE: Noncontrast 4.5 mm thick angled axial sections acquired from the foramen magnum to the vertex. For r adiation dose reduction, the following was used: automated exposure control, adjustment of mA and/or kV according to patient size. COMPARISON: None. FINDINGS: Image quality: Excellent. CSF spaces: Basal cisterns are patent. No extra-axial fluid collections. Ventricles are normal in size and shape. Brain: No midline shift. No intracranial masses or hemorrhage. Rasmussen-white matter interface is norm al. Moderate atrophy and white matter chronic ischemic change. Old white matter infarcts noted in th e left gonzáles radiata white matter. Atherosclerotic vascular calcification noted in the cavernous seg ments of both internal carotid arteries Skull and face: Calvarium and visualized facial bones are intact, without suspicious lesions. Sinuses: Mucosal thickening noted in the left maxillary sinus IMPRESSION: Moderate atrophy and white matter chronic ischemic change without acute hemorrhage or mass effect. 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
--- NOTE | 2022-06-08 13:23 | CT Report ---
PROCEDURE: CT maxillofacial without contrast INDICATIONS: fall, struck face TECHNIQUE: Noncontrast 1.5 mm thick axial images acquired from the mandible through the frontal sinuses, with co eze and sagittal reformatting. For radiation dose reduction, the following was used: automated ex posure control, adjustment of mA and/or kV according to patient size. COMPARISON: None. FINDINGS: Image quality: Excellent. Bones and teeth: Orbital whitt are intact. Sinus whitt show no fracture or deformity. Nasal bones and septum are intact. Visualized portions of the mandible demonstrate no fractures or subluxation. Zygomatic arches are intact. Pterygoid plates are intact. Visualized portions of the skull base an d auditory canals are intact. Sinuses: Bilateral maxillary sinus mucosal thickening, left greater than right Soft tissues: No edema, masses, or fluid collections. No enlarged lymph nodes. No soft tissue lace rations or debris. Bilateral intraocular lens replacements noted. Vascular: Visualized vascular structures appear normal in the absence of contrast. Bony vascular fo ramina and canals are intact. IMPRESSION: No evidence of maxillofacial fracture Bilateral maxillary mucosal sinus disease Reviewed by: Abdon Dugan MD on 06/08/2022 12:22 PM [place] Approved by: Abdon Dugan MD on 06/08/2022 12:22 PM [facility] Station ID: [id number]
== END 2022-06-08 14:14 | disposition home or self-care (01) ==
LOC: ED 11:49
DX: S00.81XA Abrasion of other part of head, initial encounter (principal); W01.0XXA Fall on same level from slipping, tripping and stumbling without subsequent striking against object, initial encounter; Y93.01 Activity, walking, marching and hiking; Z79.02 Long term (current) use of antithrombotics/antiplatelets
CPT/HCPCS: 70450; 70486; 99283; 99284; A9270

== ENCOUNTER 2022-12-10 04:53 | Outpatient (CLI) | payer MEDICARE, OTHER | END 2022-12-10 04:54 | disposition short-term general hospital (02) | LOC: EMS 04:53 | DX: R07.9 Chest pain, unspecified (principal) | CPT/HCPCS: A0425; A0427 ==

== ENCOUNTER 2022-12-30 21:30 | Outpatient (CLI) | payer MEDICARE, OTHER | END 2022-12-30 21:31 | disposition critical access hospital (66) | LOC: EMS 21:30 | DX: R40.4 Transient alteration of awareness (principal); R29.810 Facial weakness | CPT/HCPCS: A0425; A0428 ==

== ENCOUNTER 2022-12-30 21:38 | Emergency (ER) | payer MEDICARE, OTHER ==
[2022-12-30] MEDS ORDERED: SODIUM CHLORIDE 0.9% 1,000 ML IV STA (22:08)
--- NOTE | 2022-12-30 22:14 | ED Physician Documentation ---
PD HPI FOCAL NEURO - Stated complaint Stated Complaint: AMS - Chief complaint Chief Complaint: Neuro - History obtained from History obtained from: Patient, Family () - History of Present Illness Timing - onset: Today Timing - duration: Minutes Timing - details: Abrupt onset, Now resolved Severity of deficit: Moderate Weakness: Face Associated symptoms: Other (could not talk) Contributing factors: positive: Other (recent NSTEMI) Baseline status: positive: A&OX3, ambulatory, indep Similar symptoms before: Diagnosis (TIA) Recently seen: Clinic (for follow up of recent NSTEMI) - Additional information Additional information: 82-year-old Cassia Wilkins was in her home today pouring water into a Kettle when she was noted by her to freeze up he noted that she had some droop to the right side of her face and she was not talking he states that this lasted probably as long as 2 to 3 minutes. The patient has recovered and feels back to her baseline. She has had similar incidences previously and has had prior work- up for TIA. 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 She was [facility] to [facility] and evaluated. They indicated to the patient there was nothing specific that could be done for this specific vessel.Patient has had a recent NSTEMI and currently has a monitor in place. She indicates that the boiler room operator has told her she has a vessel that is not amenable to stenting. Review of Systems Constitutional: denies: Fever Eyes: denies: Decreased vision Ears: denies: Ear pain Nose: denies: Rhinorrhea / runny nose, Congestion Throat: denies: Sore throat Cardiac: denies: Chest pain / pressure, Palpitations Respiratory: denies: Dyspnea, Cough GI: denies: Abdominal Pain, Nausea, Vomiting, Constipation, Diarrhea : denies: Dysuria, Frequency Skin: denies: Rash Musculoskeletal: denies: Neck pain, Back pain, Extremity pain PD PAST MEDICAL HISTORY - Past Medical History Cardiovascular: Atrial fibrillation, Arrhythmia Respiratory: Other Endocrine/Autoimmune: None GI: Ulcers : None HEENT: Chronic sinusitis Psych: Claustrophobia Musculoskeletal: Osteopenia Derm: Psoriasis, Rosacea - Past Surgical History Past Surgical History: Yes General: Colonoscopy, EGD Ortho: Carpal Tunnel surgery, Other /MANAGER STRATEGIC SOURCING: Hysterectomy HEENT: Tonsil/Adenoidectomy - Present Medications Home Medications: Ambulatory Orders Medication Instructions Recorded Confirmed Metoprolol Succinate 25 mg PO BID 06/22/13 12/30/22 Acetaminophen [Tylenol Extra 1,000 mg PO Q6HR PRN 10/11/15 12/30/22 Strength] Metronidazole [Metrocream] 45 gm TP DAILY 10/11/15 12/30/22 Albuterol Sulfate [Proair Hfa] 8.5 gm IH PRN PRN 10/12/15 12/30/22 Atorvastatin [Lipitor] 20 mg DAILY 03/24/20 12/30/22 Clopidogrel [Plavix] 75 mg DAILY 03/24/20 12/30/22 Furosemide [Lasix] 10 mg DAILY 03/24/20 12/30/22 Loratadine [Claritin] 10 mg DAILY 03/24/20 12/30/22 Losartan Potassium 25 mg DAILY 03/24/20 12/30/22 Umeclidinium Brm/Vilanterol Tr 1 puffs DAILY 03/24/20 12/30/22 [Anoro Ellipta 62.5-25 Mcg INH] - Allergies Allergies/Adverse Reactions: Allergies Allergy/AdvReac Type Severity Reaction Status Date / Time isoniazid Allergy Hives Verified 06/08/22 12:03 amoxicillin trihydrate * AdvReac Intermediate Emesis Verified 06/08/22 12:03 [From Augmentin] potassium clavulanate * AdvReac Intermediate Emesis Verified 06/08/22 12:03 [From Augmentin] hydrocodone [From Vicodin] AdvReac Emesis Verified 06/08/22 12:03 ibuprofen [From Motrin] AdvReac Emesis Verified 06/08/22 12:03 - Social History Does the pt smoke?: No Smoking Status: Never smoker Does the pt drink ETOH?: Yes Does the pt have substance abuse?: No - Immunizations Immunizations are current?: Yes - POLST Patient has POLST: Yes POLST Status: Full Code PD ED PE NORMAL - Vitals Vital signs reviewed: Yes (hypertensive diastolic ) - General General: Alert and oriented X 3, No acute distress, Well developed/nourished - HEENT HEENT: Atraumatic, PERRL, EOMI - Neck Neck: Supple, no meningeal sign, No bony TTP - Cardiac Cardiac: RRR, No murmur - Respiratory Respiratory: No respiratory distress, Clear bilaterally - Abdomen Abdomen: Normal bowel sounds, Soft, Non tender, Non distended, No organomegaly - Back Back: No CVA TTP, No spinal TTP - Derm Derm: Normal color, Warm and dry, No rash - Extremities Extremities: No deformity, No edema - Neuro Neuro: Alert and oriented X 3, hand crown pouncer 2-12 intact, No motor deficit, No sensory deficit, Normal speech Eye Opening: Spontaneous Motor: Obeys Commands Verbal: Oriented GCS Score: 15 - Psych Psych: Normal mood, Normal affect NIHSS - Time Time: 21:55 - Level of Consciousness Level of consciousness: (0) Alert, Keenly responsive LOC Questions: (0) Answers both Q's correct LOC Commands: (0) Performs both correctly - Gaze Best Gaze: (0) Normal - Visual Visual: (0) No loss - Facial Palsy Facial Palsy: (0) Normal, symmetrical movement - Motor Arms (both separate) Motor Arm (right): (0) No drift Motor Arm (left): (0) No drift - Motor Legs (both separate) Motor Leg (right): (0) No drift Motor Leg (left): (0) No drift - Limb Ataxia Limb Ataxia: (0) Absent - Sensory Sensory: (0) Normal - Best Language Best Language: (0) No aphasia - Dysarthria Dysarthria: (0) Normal - Extinction and Inattention (formally neg Extinction and inattention: (0) No abnormality - Total Score/Results Total Score/Result: 0 Results - Vitals Vitals: Vital Signs - 24 hr 12/30/22 12/30/22 12/30/22 21:45 21:55 22:25 Temperature 36.1 C L Heart Rate 74 72 75 Respiratory 24 22 22 Rate Blood Pressure 138/89 H 134/74 H 133/111 H O2 Saturation 96 95 94 12/30/22 12/31/22 23:30 00:30 Temperature Heart Rate 75 74 Respiratory 24 22 Rate Blood Pressure 133/111 H 131/91 H O2 Saturation 94 96 Oxygen O2 Source Room air - Labs Labs: Laboratory Tests 12/30/22 12/30/22 12/30/22 22:10 22:10 22:25 WBC 7.6 RBC 4.23 Hgb 11.8 L Hct 38.3 MCV 90.5 MCH 27.9 MCHC 30.8 L RDW 13.6 Plt Count 246 MPV 11.7 H Neut # (Auto) 4.1 Lymph # (Auto) 2.5 Ware # (Auto) 0.6 Eos # (Auto) 0.2 Baso # (Auto) 0.1 Absolute Nucleated RBC 0.00 Nucleated RBC % 0.0 Sodium 142 Potassium 3.6 Chloride 104 Carbon Dioxide 30 Anion Gap 8.0 BUN 18 Creatinine 0.8 Estimated GFR (MDRD) 68 L Glucose 112 H Calcium 9.1 Total Bilirubin 0.7 AST 17 ALT 16 Alkaline Phosphatase 45 Total Protein 6.3 L Albumin 3.7 Globulin 2.6 Albumin/Globulin Ratio 1.4 Lipase 44 Urine Color YELLOW Urine Clarity CLEAR Urine pH 6.5 Ur Specific [place] 1.015 Urine Protein NEGATIVE Urine Glucose (UA) NEGATIVE Urine Ketones NEGATIVE Urine Occult Blood NEGATIVE Urine Nitrite NEGATIVE Urine Bilirubin NEGATIVE Urine Urobilinogen 0.2 (NORMAL) Ur Leukocyte Esterase NEGATIVE Ur Microscopic Review NOT INDICATED Urine Culture Comments NOT INDICATED Procedures - IVC sono (time) 1000 Bedside IVC sono: IVC measures (cm) (0.81), IVC collapsed c insp (cm) (complete), Dehydration (est 2 liter + deficit) PD Medical Decision Making - ED course Complexity details: reviewed old records, reviewed results, re-evaluated patient, considered differential, d/w patient, d/w family Reviewed Lab Results: We reviewed a complete blood count showing a normal hemoglobin hematocrit and platelets as well as a normal white blood cell count. Chemistries were with normal electrolytes normal kidney and liver function. Urinalysis unremarkable. these laboratory tests do not contribute to a specific diagnosis. They do support the diagnosis of TIA by exclusion. Procedural Risk Factors Specific to Patient: This patient currently has a monitor in place that is a patch in the center portion of her chest. This appears to be interfering with our ability to monitor the patient. We were not able to obtain an electrocardiogram. 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 She is administered 2 L of saline here in the emergency department. She leaves the department symptom-free and with a specific recommendation to maintain hydration at all times. Her indicates that she drinks water poorly and he will up his surveillance of her use of fluids. I did not find a reason to admit the patient to the hospital as she has had prior work-up with salient findings supporting our findings today. The patient has had a recent NSTEMI and she has follow-up with cardiology. They are still concerned about the possibility of atrial fibrillation. I believe this patient's TIA is not related to clot or atrial fibrillation but to her known anatomic deficiency combined with her level of volume depletion. Departure - Departure Disposition: 01 Home, Self Care Clinical Impression: TIA (transient ischemic attack), Dehydration Condition: Stable Instructions: ED Dehydration, ED Transient Ischemic Attack Follow-Up: Melinda Lim MD [Primary Care Provider] - Comments: Cassia, today it looks like you have had another transient ischemic attack. You have been evaluated for this previously and there are known abnormalities to the circulation in your brain. Today we found that you were significantly dehydrated and this likely played a role in your TIA. It has previously been determined that there is not a specific intervention that will reverse or resolve the circulation problems in your brain. For this reason it is imperative that you stay hydrated. The recommendation for an adult is to drink 2 quarts of water per day. This can come in any form of hydration. The flip side of this is if you are drinking tea you can drink too much tea and cause the caffeine to become a diuretic. The recommendation is to limit the amount of caffeine to 400 mg/day. Follow up with your boiler room operator as planned this week. Discharge Date/Time: 12/31/22 01:01
[2022-12-30 22:18] LABS: BASOPHILS # (AUTO) 0.1 10^3/uL (0.0-0.1); BASOPHILS % (AUTO) 0.9 %; EOSINOPHILS # (AUTO) 0.2 10^3/uL (0.0-0.7); EOSINOPHILS % (AUTO) 2.9 %; HCT - HEMATOCRIT 38.3 % (37.0-47.0); HGB - HEMOGLOBIN 11.8 g/dL (12.0-16.0); LYMPHOCYTES # (AUTO) 2.5 10^3/uL (1.5-3.5); MEAN CORPUSCULAR HEMOGLOBIN 27.9 pg (27.0-31.0); MEAN CORPUSCULAR HGB CONC 30.8 g/dL (32.0-36.0); MEAN CORPUSCULAR VOLUME 90.5 fL (81.0-99.0); MEAN PLATELET VOLUME 11.7 fL (7.9-10.8); MONOCYTES # (AUTO) 0.6 10^3/uL (0.0-1.0); MONOCYTES % (AUTO) 8.4 %; NEUTROPHILS # (AUTO) 4.1 10^3/uL (1.5-6.6); NEUTROPHILS % (AUTO) 54.5 %; PLT - PLATELET COUNT 246 10^3/uL (130-450); RED BLOOD COUNT 4.23 10^6/uL (4.20-5.40); RED CELL DISTRIBUTION WIDTH 13.6 % (12.0-15.0); WHITE BLOOD COUNT 7.6 x10^3/uL (4.8-10.8)
[2022-12-30 22:30] LABS: ALBUMIN 3.7 g/dL (3.2-5.5); ALBUMIN/GLOBULIN RATIO 1.4 (1.0-2.2); BILIRUBIN,TOTAL 0.7 mg/dL (0.2-1.0); CALCIUM 9.1 mg/dL (8.5-10.3); CREATININE 0.8 mg/dL (0.4-1.0); POTASSIUM 3.6 mmol/L (3.5-5.0); TOTAL PROTEIN 6.3 g/dL (6.7-8.2)
[2022-12-30 22:33] LABS: BILIRUBIN,URINE NEGATIVE (NEGATIVE); GLUCOSE, URINE (UA) NEGATIVE (NEGATIVE); KETONES,URINE (UA) NEGATIVE (NEGATIVE); LEUKOCYTE ESTERASE, URINE NEGATIVE (NEGATIVE); NITRITE,URINE NEGATIVE (NEGATIVE); OCCULT BLOOD,URINE NEGATIVE (NEGATIVE); PH,URINE 6.5 PH (5.0-7.5); PROTEIN,URINE NEGATIVE (NEGATIVE); UROBILINOGEN,URINE 0.2 (NORMAL) E.U./dL (NORMAL)
[2022-12-30 22:35] LABS: CLARITY,URINE CLEAR (CLEAR)
[2022-12-31] MEDS ORDERED: SODIUM CHLORIDE 0.9% 1,000 ML IV STA (00:02)
[2022-12-31 01:04] VITALS: BP 131/91; O2SAT 96
== END 2022-12-31 01:01 | disposition home or self-care (01) ==
LOC: EDUNIT# → ED 21:38
DX: G45.9 Transient cerebral ischemic attack, unspecified (principal); E86.0 Dehydration; I48.91 Unspecified atrial fibrillation; Z79.01 Long term (current) use of anticoagulants
CPT/HCPCS: 36415; 80053; 81001; 81003; 83690; 85025; 87086; 93005; 96360; 99284